=== PATIENT | female | born 1970 | race American Indian/Alaskan Native ===

== ENCOUNTER 2020-01-17 13:06 | Emergency (ER) | payer MEDICAID ==
[2020-01-17] MEDS ORDERED: SUMAtriptan SUCCINATE 6 MG/0.5 ML INJ SUB-Q ONE (14:17)
--- NOTE | 2020-01-17 14:27 | Emergency Department Report ---
ED Headache HPI - General Chief Complaint: Headache Stated Complaint: MIGRANES Time Seen by Provider: 01/17/20 14:16 Source: patient Exam Limitations: no limitations - History of Present Illness Initial Comments: Patient states she has been getting migraine type headaches for several months and presents today with complaints of same. She states that they initially started earlier this year but have now become more frequent to the point that she is feeling them daily. She reports associated blurred vision which is new over the past several days as well as photo and phonophobia. Denies nausea vomiting or fevers. She states that she is concerned because they are becoming so much more frequent to the point that she is taking Goody powder at least twice a day. Described as moderate to severe pain, no alleviating or exacerbating factors other than Goody's powder which helps some temporarily. Allergies/Adverse Reactions: Allergies No Known Allergies Allergy (Unverified 10/28/13 17:44) Home Medications: Ambulatory Orders HYDROcodone/APAP 7.5-325 [[place] 7.5-325 mg TAB] 1 each PO Q6HR PRN #14 tablet 10/28/13 Ibuprofen [Motrin] 800 mg PO Q8H PRN #20 tablet 10/28/13 Acetaminophen/Codeine [Tylenol #3] 1 tab PO Q6H PRN #12 tab 11/18/15 Penicillin Vk [Veetids TAB] 500 mg PO BID #20 tablet 11/18/15 Butalb/Acetamin/Caff 50-325-40 [Fioricet 50-325-40] 1 each PO TID PRN #15 tablet 01/17/20 ED Review of Systems ROS: Stated complaint: MIGRANES Other details as noted in HPI Comment: All other systems reviewed and negative Neurological: as per HPI ED Past Medical Hx - Past Medical History Previous Medical History?: No - Surgical History Past Surgical History?: Yes Additional Surgical History: c section 2000 - Social History Smoking Status: Never Smoker Substance Use Type: None - Medications Home Medications: Home Medications Medication Instructions Recorded Confirmed Last Taken Type HYDROcodone/APAP 7.5-325 [[place] 1 each PO Q6HR PRN #14 tablet 10/28/13 Unknown Rx 7.5-325 mg TAB] Ibuprofen [Motrin] 800 mg PO Q8H PRN #20 tablet 10/28/13 Unknown Rx Acetaminophen/Codeine [Tylenol #3] 1 tab PO Q6H PRN #12 tab 11/18/15 Unknown Rx Penicillin Vk [Veetids TAB] 500 mg PO BID #20 tablet 11/18/15 Unknown Rx Butalb/Acetamin/Caff 50-325-40 1 each PO TID PRN #15 tablet 01/17/20 Unknown Rx [Fioricet 50-325-40] ED Physical Exam - General Limitations: No Limitations General appearance: alert, in no apparent distress - Head Head exam: Present: atraumatic, normocephalic - Eye Eye exam: Present: normal appearance, PERRL, EOMI - ENT ENT exam: Present: mucous membranes moist - Neck Neck exam: Present: normal inspection - Respiratory Respiratory exam: Present: normal lung sounds bilaterally. Absent: respiratory distress - Cardiovascular Cardiovascular Exam: Present: regular rate, normal rhythm. Absent: systolic mu rmur, diastolic murmur, rubs, gallop - GI/Abdominal GI/Abdominal exam: Present: soft, normal bowel sounds - Extremities Exam Extremities exam: Present: normal inspection - Back Exam Back exam: Present: normal inspection - Neurological Exam Neurological exam: Present: alert, oriented X3, CN II-XII intact, normal gait, reflexes normal. Absent: motor sensory deficit - Psychiatric Psychiatric exam: Present: normal affect, normal mood - Skin Skin exam: Present: warm, dry, intact, normal color. Absent: rash ED Course Vital Signs 01/17/20 13:31 Temperature 98.0 F Pulse Rate 71 Respiratory 18 Rate Blood Pressure 156/97 O2 Sat by Pulse 98 Oximetry ED Medical Decision Making - Radiology Data Radiology results: report reviewed CT head negative - Medical Decision Making Patient presenting migraine type headaches worsening over the past several months with no prior history. Examination is normal. We will give Imitrex and check CT as she has not had these evaluated before. CT negative follow-up neurology - Differential Diagnosis Migraine, tension headache, intracranial mass, unlikely hemorrhage. Critical care attestation.: If time is entered above; I have spent that time in minutes in the direct care of this critically ill patient, excluding procedure time. ED Disposition Clinical Impression: Headache Qualifiers: Headache type: unspecified Headache chronicity pattern: acute headache Intractability: not intractable Qualified Code(s): R51 - Headache Disposition: DC- TO HOME OR SELFCARE Is pt being admited?: No Condition: Good Instructions: Migraine Headache (ED) Prescriptions: Butalb/Acetamin/Caff 50-325-40 [Fioricet 50-325-40] 1 each PO TID PRN #15 tablet PRN Reason: Headache Referrals: LUCAS CLANCY MD [Staff Physician] - 3-5 Days Time of Disposition: 15:23
--- NOTE | 2020-01-17 15:12 | Cat Scan Report ---
CT BRAIN: 01/17/2020 INDICATION / CLINICAL INFORMATION: MAIN. Headache. Visual disturbance. COMPARISON: None available. FINDINGS: BRAIN/INTRACRANIAL STRUCTURES: Unenhanced CT images of the brain demonstrate no evidence of acute int racranial abnormality. Ventricles and sulci are normal in size and shape. There is no evidence of ischemic injury, hemorrhage, or mass. There are no abnormal extra-axial fluid collections. EXTRACRANIAL STRUCTURES: Unremarkable. No acute abnormality. IMPRESSION: All CT scans at this location are performed using dose reduction to ALARA by means of automated expos ure control. Signer Name: Taras Muniz MD Signed: 01/17/2020 3:08 PM Workstation Name: [id number]
[2020-01-17 15:20] VITALS: BP 156/97
== END 2020-01-17 15:35 | disposition home or self-care (01) ==
LOC: ED 13:06
DX: R51.9 Headache, unspecified (principal); Z98.890 Other specified postprocedural states; Z79.1 Long term (current) use of non-steroidal anti-inflammatories (NSAID); Z79.2 Long term (current) use of antibiotics; Z79.899 Other long term (current) drug therapy
CPT/HCPCS: 70450; 96372; J3030